=== PATIENT | male | born 2000 | race Caucasian/White ===

== ENCOUNTER 2022-02-27 16:14 | Outpatient (REF) | payer SELFPAY ==
[2022-02-27 21:39] LABS: Abs Immature Grans 0.02 10^3/uL (0.0-0.06); Absolute Basophil Count 0.03 10^3/uL (0.0-0.2); Absolute Eosinophil Count 0.11 10^3/uL (0.0-0.7); Absolute Lymphocyte Count 1.33 10^3/uL (1.2-3.4); Absolute Monocyte Count 0.54 10^3/uL (0.1-0.8); Absolute Neutrophil Count 4.83 10^3/uL (1.2-6.7); Basophils % 0.4; Eosinophils % 1.6; HCT 46.4 % (40.0-50.0); HGB 15.3 g/dL (13.5-17.5); Immature Grans % 0.3; Lymphocytes % 19.4; MCH 28.5 pg (27.0-33.0); MCV 87 fL (80-95); MPV 10.7 fL (8.0-11.0); Monocytes % 7.9; Neutrophils % 70.4; Platelet Count 249 10^3/uL (130-400); RBC 5.36 10^6/uL (4.36-5.78); RDW 11.5 % (11.8-14.1); RDW-SD 36.5 fL; WBC 6.86 10^3/uL (4.4-10.8)
[2022-02-27 21:51] LABS: ALT 114 U/L (16-63); AST 23 U/L (15-37); Albumin 5.1 g/dL (3.4-5.0); Alkaline Phosphatase 62 U/L (46-116); Anion Gap 11.6 mmol/L (3-11); BUN 18 mg/dL (7-18); Bilirubin, Total 1.2 mg/dL (0.2-1.0); CO2 26.4 mmol/L (21.0-32.0); Calcium 9.7 mg/dL (8.5-10.1); Chloride 99 mmol/L (98-107); Glucose 76 mg/dL (74-106); Lipase 55 U/L (73-393); Potassium 3.9 mmol/L (3.5-5.1); Sodium 137 mmol/L (136-145); Total Protein 8.4 g/dL (6.4-8.2)
== END 2022-02-27 16:15 | disposition home or self-care (01) ==
LOC: LBN 16:14
PROVIDERS: Visit Provider Physician Assistant Medical
DX: R11.0 Nausea (principal)
CPT/HCPCS: 80053; 83690; 85025